=== PATIENT | female | born 1950 | race Caucasian/White ===

== ENCOUNTER 2021-06-21 17:06 | Emergency (ER) | payer MEDICARE, OTHER ==
[~2021-06-21] VITALS: Ht 154.9 cm; Wt 107.0 kg
[2021-06-21] MEDS ORDERED: BROM1.7D9 EACHEYE (17:50)
[2021-06-21] MEDS ORDERED: NA P133E RC (17:50)
[2021-06-21] MEDS ORDERED: RISP0.2515 PO (17:50)
[2021-06-21] MEDS ORDERED: ASPI-1169 PO (17:50)
[2021-06-21] MEDS ORDERED: KETO10DR3 EACHEYE (17:50)
[2021-06-21] MEDS ORDERED: FLUO10CA29 PO (17:50)
[2021-06-21] MEDS ORDERED: ATOR10TA PO (17:50)
[2021-06-21] MEDS ORDERED: ACET-868 PO (17:50)
[2021-06-21] MEDS ORDERED: ALBU8.5H8 IH (17:50)
[2021-06-21] MEDS ORDERED: LOSA50TA39 PO (17:50)
[2021-06-21] MEDS ORDERED: ACET-2605 PO (17:50)
[2021-06-21 20:27] LABS: BASOPHILS % (AUTO) 0.3 % (0.0-2.0); EOSINOPHILS % (AUTO) 1.4 % (0.0-6.0); HEMATOCRIT 43 % (33-45); LYMPHOCYTES # (AUTO) 1.5 K/uL (0.8-4.8); LYMPHOCYTES % (AUTO) 16.3 % (20.0-44.0); MEAN CORPUSCULAR HGB CONC 33 g/dl (31.0-36.0); MEAN CORPUSCULAR VOLUME 87 fL (82-100); MONOCYTES # (AUTO) 0.5 K/uL (0.1-1.30); MONOCYTES % (AUTO) 5.2 % (2.0-12.0); NEUTROPHILS # (AUTO) 6.9 K/uL (1.8-8.9); NEUTROPHILS % (AUTO) 76.8 % (43.0-81.0); PLATELET COUNT (AUTO) 301 K/uL (150-450); RED BLOOD CELL COUNT(AUTO) 4.94 MIL/uL (4.0-5.2)
[2021-06-21 20:35] LABS: CREATININE 0.9 mg/dL (0.6-1.3); POTASSIUM 4.1 mmol/L (3.5-5.1)
[2021-06-21] MEDS ORDERED: ALBUTEROL FS 2.5 MG/3 ML VIAL.NEB ONE (20:53)
[2021-06-21] MEDS ORDERED: IPRATROPIUM NEB FS 0.5 MG/2.5 ML AMPUL.NEB ONE (20:53)
[2021-06-21] MEDS: IPRATROPIUM NEB FS 0.5 MG/2.5 ML AMPUL.NEB NEB ONE (20:55)
[2021-06-21] MEDS: ALBUTEROL FS 2.5 MG/3 ML VIAL.NEB CONTNEB ONE (20:55)
[2021-06-21] MEDS ORDERED: AZIT1PAC PO (22:11)
[2021-06-21] MEDS ORDERED: PRED50TA PO (22:12)
[2021-06-21] MEDS ORDERED: AZITHROMYCIN 500 MG VIAL ONE (22:13)
[2021-06-21] MEDS ORDERED: methylPREDNISolone SOD SUCC 125 MG/2ML VIAL ONE (22:13)
[2021-06-21] MEDS ORDERED: ALBU18HF2 INH (22:13)
[2021-06-21] MEDS: methylPREDNISolone SOD SUCC 125 MG/2ML VIAL IV ONE (22:14)
[2021-06-21] MEDS: AZITHROMYCIN 500 MG in IV D5W 250 ML IV ONE (22:15)
--- NOTE | 2021-06-21 22:30 | NUR ---
REPORT GIVEN TO CAESAR AT 4 SEASONS RE PATIENT'S DISCHARGE STATUS
--- NOTE | 2021-06-21 22:31 | NUR ---
[facility] ETA: 30-45 MIN
--- NOTE | 2021-06-21 23:15 | NUR ---
ADDENDUM: Intravenous End Time Documentation: Zithromax 500 mg IVPB: start time:5 PM ; end time: 5 AM : IV site: [facility] PIV # 20 Port # 1
[2021-06-21] MEDS ORDERED: hydrALAZINE HCL IV 20 MG VIAL ONE (23:18)
[2021-06-21] MEDS: hydrALAZINE HCL IV 20 MG VIAL IV ONE (23:24)
--- NOTE | 2021-06-22 00:41 | NUR ---
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
[2021-06-22 00:45] VITALS: BP 145/99
== END 2021-06-22 00:50 ==
LOC: ER 17:23
DX: J44.1 Chronic obstructive pulmonary disease with (acute) exacerbation (principal); F32.A Depression, unspecified; Z86.69 Personal history of other diseases of the nervous system and sense organs; Z79.51 Long term (current) use of inhaled steroids; Z79.52 Long term (current) use of systemic steroids; Z79.1 Long term (current) use of non-steroidal anti-inflammatories (NSAID); Z79.82 Long term (current) use of aspirin; Z79.899 Other long term (current) drug therapy
CPT/HCPCS: 36415; 71045; 80048; 83880; 85025; 93005; 94640; 96365; 96375 ×2; 99285; J0360; J0456; J2930